=== PATIENT | male | born 1980 | race Caucasian/White ===

== ENCOUNTER 2021-11-18 02:13 | Emergency (ER) | payer OTHER ==
[2021-11-18] MEDS ORDERED: IBUPROFEN600 MG PO (03:58)
[2021-11-18] MEDS ORDERED: BACTROBAN OINT22 GM EXT (03:58)
== END 2021-11-18 04:07 | disposition home or self-care (01) ==
LOC: ER1 02:13
DX: S61.211A Laceration without foreign body of left index finger without damage to nail, initial encounter (principal); Z23 Encounter for immunization; F17.210 Nicotine dependence, cigarettes, uncomplicated; X58.XXXA Exposure to other specified factors, initial encounter
CPT/HCPCS: 64450; 90471; 90715; 99283